=== PATIENT | female | born 1955 | race Caucasian/White ===

== ENCOUNTER 2020-11-03 13:13 | Emergency (ER) | payer MEDICARE, SELFPAY ==
[2020-11-03 13:21] VITALS: BP 111/77; PULSE 74; RESP 16; TEMP 37.2; O2SAT 92; BMI 21.6
--- NOTE | 2020-11-03 13:39 | W.ED.GENADLT ---
Documented by User: TAVIA Small 11/03/20 15:05 HPI - General Adult General: Chief complaint: General Medical Stated complaint: NEED STITCHES IN CENTRAL LINE Time Seen by Provider: 11/03/20 13:28 Source: patient Mode of arrival: ambulatory Limitations: no limitations History of Present Illness: HPI narrative: Patient is a nice 65-year-old female who presents to ED today stating she needs sutures placed in her central line hub. Patient tells me she has had a central line over the past 27 years. She receives epoprostenol for her pulmonary hypertension/edema. She apparently had her central line changed out a few weeks ago (has a [employer]). She believes for some reason she was told to cut the sutures out in a few weeks so she did. She was later told by her team at [facility] the sutures are permanent and need to be replaced. Relieving factors: none Exacerbating factors: none Associated symptoms: Reports no associated symptoms; Deny chest pain, dyspnea, malaise, nausea, rash or vomiting Treatments prior to arrival: none Review of Systems Const: Denies: fever(s), chills, body aches, fatigue or malaise Card: Denies: chest pain Resp: Denies: dyspnea GI: Denies: nausea or vomiting Skin/Breast: Denies: rash Neuro: Denies: numbness in extremities, weakness in extremities or sensory changes Physical Exam Const: COMMON NORMALS: no acute distress, average body habitus, patient oriented x3, no limitations, healthy appearing, alert and well nourished GENERAL APPEARANCE: cooperative ORIENTATION/CONSCIOUSNESS: Yes awake, Yes oriented to person, Yes oriented to place and Yes oriented to time HENMT: COMMON NORMALS: normocephalic and atraumatic HEAD & SCALP: normocephalic and atraumatic Resp: COMMON NORMALS: normal respiratory effort and clear to auscultation bilaterally AUSCULTATION: clear to auscultation bilaterally Cardio: COMMON NORMALS: regular rate and regular rhythm RATE: regular rate RHYTHM: regular rhythm Neuro: COMMON NORMALS: patient oriented x3 SENSORIUM/ORIENTATION: Yes alert, Yes oriented to person, Yes oriented to place and Yes oriented to time Course Vital Signs: Vital signs: Vital Signs Temperature 99.0 F 11/03/20 13:21 Pulse Rate 76 11/03/20 13:54 Respiratory Rate 16 04/27/21 13:54 Blood Pressure 133/92 11/03/20 13:54 Pulse Oximetry 94 11/03/20 13:54 MDM - General Adult MDM Narrative: Medical decision making narrative: Flange was anchored with 0 silk suture using air-knot and then anchoring to flange. Recommend follow up with [facility] as scheduled. Return to ED precautions given. Dr. Mccarty also saw patient and agrees with plan today. Discharge Plan Discharge Patient Disposition: Home Clinical Impression: Encounter for central line care Condition: Stable Prescriptions: No Action potassium chloride 10 mEq tablet extended release 10 meq PO DAILY@0900 RF: 0 warfarin 5 mg tablet 5 mg PO DAILY@0900 RF: 0 hydrochlorothiazide 25 mg tablet 25 mg PO DAILY@0900 RF: 0 Acetaminophen PM 25-500 mg Tablet 1 tab PO BEDTIME@2200 RF: 0 eszopiclone 2 mg tablet 2 mg PO BEDTIME PRN (Reason: Insomnia) RF: 0 epoprostenol 0.5 mg Recon Soln 0.5 mg CONTINUOUS IV INFUSION DAILY RF: 0 Discharge Orders: Discharge ED (Routine); Ordered 11/03/20 Ordered By: Ashley Oconnor Coding Level of Care Code ED Library Circulation Assistant for Chg Fwd Exam Expanded Problem Focused Documented by User: Ehsan Mccarty DO 11/04/20 06:16 HPI - General Adult General: Chief complaint: General Medical Stated complaint: NEED STITCHES IN CENTRAL LINE Time Seen by Provider: 11/03/20 13:28 History of Present Illness: HPI narrative: Doctor's office from [facility] had called prior to patient's arrival. She is getting a regular infusion for pulmonary hypertension currently using a central line. Patient had remove the sutures. She is referred back to have a line sutured back in place to secure. Patient denies any problems line is not had any drainage. Physical Exam Chest: OTHER: Patient has a central line in the lateral third of the right infraclavicular region. There is no surrounding erythema no drainage line is not retracted at all. It is not secured in place at this time. Course Vital Signs: Vital signs: Vital Signs Temperature 99.0 F 11/03/20 13:21 Pulse Rate 76 11/03/20 13:54 Respiratory Rate 16 11/03/20 13:54 Blood Pressure 133/92 11/03/20 13:54 Pulse Oximetry 94 11/03/20 13:54 MDM - General Adult MDM Narrative: Medical decision making narrative: TAVIA Small seen patient initially reviewed the chart and seen the patient. Reviewed with TAVIA procedure for securing the central line. Was secured in place see her procedure notes patient to follow-up with the clinic in [facility]. Discharge Plan Discharge Patient Disposition: Home Clinical Impression: Encounter for central line care Condition: Stable Prescriptions: No Action potassium chloride 10 mEq tablet extended release 10 meq PO DAILY@0900 RF: 0 warfarin 5 mg tablet 5 mg PO DAILY@0900 RF: 0 hydrochlorothiazide 25 mg tablet 25 mg PO DAILY@0900 RF: 0 Acetaminophen PM 25-500 mg Tablet 1 tab PO BEDTIME@2200 RF: 0 eszopiclone 2 mg tablet 2 mg PO BEDTIME PRN (Reason: Insomnia) RF: 0 epoprostenol 0.5 mg Recon Soln 0.5 mg CONTINUOUS IV INFUSION DAILY RF: 0 Discharge Orders: Discharge ED (Routine); Ordered 11/03/20 Ordered By: Ashley Oconnor Coding Level of Care Code ED Library Circulation Assistant for Jimg Fwd Exam Expanded Problem Focused
[2020-11-03 13:54] VITALS: BP 133/92; PULSE 76; RESP 16; O2SAT 94
== END 2020-11-03 15:19 | disposition home or self-care (01) ==
PROVIDERS: Emergency Provider Physician Assistant
DX: T82.9XXA Unspecified complication of cardiac and vascular prosthetic device, implant and graft, initial encounter (principal); Z79.01 Long term (current) use of anticoagulants
CPT/HCPCS: 99281